=== PATIENT | male | born 1990 | race Caucasian/White ===

== ENCOUNTER 2024-07-16 23:51 | Emergency (ER) | payer OTHER ==
[~2024-07-16] VITALS: Ht 180.3 cm; Wt 115.7 kg
[2024-07-17 02:03] VITALS: BP 135/76; TEMP 97.5; O2SAT 99
[2024-07-17] MEDS ORDERED: BACL10TA PO (02:23)
[2024-07-17] MEDS ORDERED: KETO10TA2 PO (02:23)
== END 2024-07-17 02:40 | disposition home or self-care (01) ==
LOC: ER 07-17 00:07
DX: S06.0XAA Concussion with loss of consciousness status unknown, initial encounter (principal); S13.4XXA Sprain of ligaments of cervical spine, initial encounter; E11.9 Type 2 diabetes mellitus without complications; V49.40XA Driver injured in collision with unspecified motor vehicles in traffic accident, initial encounter; Y93.89 Activity, other specified; Y92.410 Unspecified street and highway as the place of occurrence of the external cause; Y99.8 Other external cause status